=== PATIENT | female | born 2000 | race Hispanic/Latino ===

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

== ENCOUNTER 2024-01-05 15:02 | Outpatient (CLI) | payer OTHER | END 2024-01-05 15:03 | disposition home or self-care (01) | LOC: MRI 15:02 → SCSMRI 15:03 | PROVIDERS: ATTEND Psychiatry & Neurology Neurology | DX: G43.719 Chronic migraine without aura, intractable, without status migrainosus (principal); R90.89 Other abnormal findings on diagnostic imaging of central nervous system; J32.0 Chronic maxillary sinusitis; J34.2 Deviated nasal septum | CPT/HCPCS: 70553; 76376 ==